=== PATIENT | female | born 1960 | race Caucasian/White ===

== ENCOUNTER → 2017-03-05 | Outpatient (CLI) | payer OTHER ==
--- NOTE | 2017-03-05 16:19 | RAD ---
Carotid ultrasound, 03/05/2017: History: Left retinal artery occlusion Duplex evaluation of the carotid arteries in the neck was performed including grayscale, color-flow and spectral Doppler analysis. There is mild smooth plaquing at the carotid bifurcations. The peak systolic velocity in the left internal carotid artery 53 cm/s with an end-diastolic velocity of 21 cm/s. The peak systolic velocity in the right internal carotid artery is 62 cm/s with an the end-diastolic velocity of 17 cm/s. The findings do not indicate significant carotid narrowing. Antegrade flow is present in both vertebral arteries in the neck. IMPRESSION: Mild smooth plaquing at both carotid bifurcations with underlying luminal narrowing in the 0-50% diameter range. Note: Stenosis calculations for CTA, MRA and conventional angiography are based upon determination of the distal ICA diameter in accordance with the NASCET methodology. Stenosis calculations for Doppler studies are derived from validated velocity criteria which are known to correlate with NASCET methodology of determining stenosis.
== END | disposition home or self-care (01) ==
LOC: US 10:53
PROVIDERS: ATTEND Internal Medicine Cardiovascular Disease
DX: I65.22 Occlusion and stenosis of left carotid artery (principal)
CPT/HCPCS: 93880